=== PATIENT | male | born 1995 | race Hispanic/Latino ===

== ENCOUNTER 2023-12-31 18:25 | Inpatient (IN) | payer SELFPAY ==
[2023-12-31 19:04] LABS: #Monocytes 0.8 thou/uL (0.11-0.59); #Neutrophils 14.4 thou/uL (1.40-6.50); %Basophils 0.2 % (0.0-1.0); %Eosinophils 0.1 % (0.0-10.0); %Lymphocytes 3.4 % (21.0-51.0); %Monocytes 4.8 % (0.0-10.0); %Neutrophils 90.9 % (42.0-75.0); Hematocrit 48.1 % (42.0-52.0); Hemoglobin 16.7 g/dL (14.0-18.0); Mean Corpuscular HGB CONC 34.7 g/dL (32.0-36.0); Mean Corpuscular Hemoglobin 31.5 pg (27.0-31.0); Mean Corpuscular Volume 90.6 fl (78.0-98.0); Platelet Count 172 10x3/uL (130-400); RBC Distribution Width 13.1 % (11.5-14.5); Red Blood Cell (RBC) Count 5.31 mill/uL (4.70-6.10); White Blood Cell (WBC) Count 15.9 10x3/uL (4.8-10.8)
[2023-12-31 19:30] LABS: ALT (SGPT) 54 U/L (8-55); AST (SGOT) 26 U/L (5-34); Albumin 4.5 g/dL (3.5-5.0); Alkaline Phosphatase 83 U/L (40-110); Anion Gap 11 mmol/L (10-20); BUN (Urea Nitrogen) 16 mg/dL (8.9-20.6); Bilirubin, Total 1.2 mg/dL (0.2-1.2); Calc. Creatinine Clearance 0 mL/min (70-130); Carbon Dioxide 26 mmol/L (22-29); Chloride 101 mmol/L (98-107); Estimated GFR 70; Globulin 2.9 g/dL (2.4-3.5); Glucose 121 mg/dL (70-105); Potassium 4.1 mmol/L (3.5-5.1); Protein, Total 7.4 g/dL (6.0-8.3); Sodium 134 mmol/L (136-145)
[2023-12-31] MEDS ORDERED: Cefepime 2 GM VIAL ONE (20:22)
[2023-12-31] MEDS ORDERED: Acetaminophen 500 MG TAB ONE (20:22)
[2023-12-31] MEDS ORDERED: Sodium Chloride 0.9% 100 ML ONE (20:22)
[2023-12-31] MEDS ORDERED: Ketorolac Tromethamine 30 MG (1 mL) VIAL ONE (21:04)
[2023-12-31 22:25] VITALS: BMI 30.2
[2023-12-31] MEDS: Vancomycin (BATCH) 1.5 GM in Premix 1 BAG IVPB SCH (22:30)
[2023-12-31] MEDS ORDERED: Acetaminophen 325 MG TAB PO PRN (23:22)
[2023-12-31] MEDS ORDERED: Ondansetron ODT 4 MG TAB PO PRN (23:22)
[2024-01-01 00:33] LABS: HBCM Index 0.12 S/CO (0-0.79); HBSAg Index 0.24 S/CO (0-0.99); Hep A IgM AB Non-Reactive S/CO (NonReactive); Hep A IgM S/CO 0.21 S/CO (0-0.79); Hep B Surf Ag Non-Reactive S/CO (NonReactive); Hep C IgG Ab Non-Reactive S/CO (NonReactive); Hep C Index 0.12 S/CO (0-0.79); Hepatitis B Core IgM Abs Non-Reactive S/CO (NonReactive)
[2024-01-01] MEDS: diphenhydrAMINE 25 MG CAP PO SCH (01:03)
[2024-01-01] MEDS: Clindamycin/D5W 900 MG in Premix 1 BAG IVPB SCH (01:03)
[2024-01-01 04:51] LABS: #Eosinphils 0.1 thou/uL (0.0-0.7); #Monocytes 0.5 thou/uL (0.11-0.59); %Basophils 0.2 % (0.0-1.0); %Eosinophils 0.5 % (0.0-10.0); %Lymphocytes 13.1 % (21.0-51.0); %Monocytes 5.1 % (0.0-10.0); %Neutrophils 80.9 % (42.0-75.0); Hematocrit 43.5 % (42.0-52.0); Hemoglobin 15.1 g/dL (14.0-18.0); Mean Corpuscular HGB CONC 34.7 g/dL (32.0-36.0); Mean Corpuscular Hemoglobin 31.7 pg (27.0-31.0); Mean Corpuscular Volume 91.4 fl (78.0-98.0); Mean Platelet Volume 11.9 fL (7.4-10.4); Platelet Count 148 10x3/uL (130-400); RBC Distribution Width 13.3 % (11.5-14.5); Red Blood Cell (RBC) Count 4.76 mill/uL (4.70-6.10); White Blood Cell (WBC) Count 9.8 10x3/uL (4.8-10.8)
[2024-01-01 05:22] LABS: ALT (SGPT) 44 U/L (8-55); AST (SGOT) 21 U/L (5-34); Albumin 3.7 g/dL (3.5-5.0); Alkaline Phosphatase 65 U/L (40-110); Anion Gap 12 mmol/L (10-20); BUN (Urea Nitrogen) 16 mg/dL (8.9-20.6); Bilirubin, Total 1.6 mg/dL (0.2-1.2); Calc. Creatinine Clearance 117 mL/min (70-130); Calcium 8.3 mg/dL (7.8-10.44); Carbon Dioxide 24 mmol/L (22-29); Chloride 106 mmol/L (98-107); Estimated GFR 85; Globulin 2.5 g/dL (2.4-3.5); Glucose 99 mg/dL (70-105); Potassium 3.6 mmol/L (3.5-5.1); Protein, Total 6.2 g/dL (6.0-8.3); Sodium 138 mmol/L (136-145)
[2024-01-01] MEDS ORDERED: Vancomycin (BATCH) 1.5 GM in Premix 1 BAG IVPB SCH (09:00)
[2024-01-01] MEDS: Vancomycin (BATCH) 1.25 GM in Premix 1 BAG IVPB SCH (09:11)
[2024-01-01] MEDS: Cefepime 2 GM in Sodium Chloride 0.9% 100 ML IVPB SCH (09:24)
[2024-01-01] MEDS: Famotidine 20 MG TAB PO SCH (09:24)
[2024-01-01] MEDS ORDERED: Linezolid 600 MG in Premix 1 BAG IVPB SCH (10:30)
[2024-01-01] MEDS: Doxycycline 100 MG in Sodium Chloride 0.9% 100 ML IVPB SCH (10:57)
[2024-01-01 12:50] VITALS: BP 120/59; TEMP 97.5
[2024-01-01] MEDS ORDERED: Cefepime 2 GM in Sodium Chloride 0.9% 100 ML IVPB SCH (21:00)
[2024-01-01] MEDS ORDERED: Doxycycline 100 MG in Sodium Chloride 0.9% 100 ML IVPB SCH (21:00)
[2024-01-02] MEDS ORDERED: Aspirin 81 mg Enteric Coated Tablet PO SCH (09:00)
== END 2024-01-01 14:30 | disposition left against medical advice (07) | DRG 872 ==
LOC: ERS 18:25 → 2NO 20:50
PROVIDERS: ADMIT Student in an Organized Health Care Education/Training Program; ATTEND Family Medicine
DX: A41.9 Sepsis, unspecified organism (principal); L03.115 Cellulitis of right lower limb; N17.9 Acute kidney failure, unspecified; E87.1 Hypo-osmolality and hyponatremia
CPT/HCPCS: 36415; 71045; 80053; 80074; 83605; 85025; 87040; 93005; 96365; 96375; J0692; J1885; J3370; J3490

== ENCOUNTER 2024-01-17 07:55 | Emergency (ER) | payer SELFPAY | END 2024-01-17 08:32 | disposition left against medical advice (07) | LOC: ERS 07:55 | DX: Z53.21 Procedure and treatment not carried out due to patient leaving prior to being seen by health care provider (principal) ==